=== PATIENT | female | born 1970 | race Caucasian/White ===

== ENCOUNTER 2020-08-12 22:09 | Emergency (ER) | payer SELFPAY ==
[2020-08-13] MEDS ORDERED: ACET-3385 PO (14:08)
== END 2020-08-13 00:44 | disposition left against medical advice (07) ==
LOC: EMS 22:09
DX: S89.90XA Unspecified injury of unspecified lower leg, initial encounter (principal); Z53.21 Procedure and treatment not carried out due to patient leaving prior to being seen by health care provider; W22.8XXA Striking against or struck by other objects, initial encounter; Y93.89 Activity, other specified; Y92.89 Other specified places as the place of occurrence of the external cause; Y99.0 Civilian activity done for income or pay

== ENCOUNTER 2020-08-13 14:02 | Emergency (ER) | payer OTHER ==
[~2020-08-13] VITALS: Ht 162.6 cm; Wt 113.6 kg
[2020-08-13] MEDS ORDERED: ACET-3385 PO (14:08)
[2020-08-13] MEDS ORDERED: IBUPROFEN 800 MG TABLET PO ONE (16:00)
[2020-08-13 16:57] VITALS: BP 151/60
[2020-08-13] MEDS ORDERED: DICLOFENAC SODIUM 1% 100 GM GEL [4GM] TP ONE (17:15)
== END 2020-08-13 18:17 | disposition home or self-care (01) ==
LOC: EMS 14:05
DX: M25.561 Pain in right knee (principal)
CPT/HCPCS: 99283